=== PATIENT | female | born 1995 | race Two or more races ===

== ENCOUNTER 2022-07-08 11:13 | Observation (INO) | payer OTHER ==
[~2022-07-08] VITALS: Ht 165.1 cm; Wt 104.8 kg
== END 2022-07-08 13:07 | disposition home or self-care (01) ==
LOC: LDRP 11:13
PROVIDERS: ADMIT Obstetrics & Gynecology; ATTEND Obstetrics & Gynecology
DX: O26.893 Other specified pregnancy related conditions, third trimester (principal); R10.30 Lower abdominal pain, unspecified; Z3A.33 33 weeks gestation of pregnancy
CPT/HCPCS: 59025; 81002; 94760; G0378